=== PATIENT | male | born 2000 ===

== ENCOUNTER 2022-08-31 07:55 | Emergency (ER) | payer BC ==
[2022-08-31] MEDS ORDERED: Acetaminophen/HYDROcodone 325-5 MG Tab PO ONE (08:29)
[2022-08-31] MEDS ORDERED: Ibuprofen 800 MG Tab PO ONE (08:29)
[2022-08-31 08:46] LABS: HEMATOCRIT 44.2 % (38.3-50.1); HEMOGLOBIN 14.7 g/dL (12.9-17.7); MEAN CORPUSCULAR HEMOGLOBIN 30.5 pg (27.0-33.3); MEAN CORPUSCULAR HGB CONC 33.3 g/dL (28.7-35.3); MEAN CORPUSCULAR VOLUME 91.6 fL (80.8-98.7); MEAN PLATELET VOLUME 8.9 fL (6.7-11.0); PLATELET COUNT,PLT 280 x10(3)uL (117-477); RED BLOOD CELL COUNT 4.82 x10(6)uL (3.90-5.90); RED CELL DISTRIBUTION WIDTH 12.9 % (12.4-15.0); WHITE BLOOD CELL COUNT,WBC 17.4 x10-3/uL (3.2-10.1)
[2022-08-31 08:56] LABS: EOSINOPHILS PERCENT MAN 1 % (0-5); LYMPHOCYTES PERCENT MAN 9 % (13-37); MONOCYTES PERCENT MAN 4 % (4-12); SEG NEUTROPHILS PERCENT MAN 86 % (46-82)
[2022-08-31] MEDS ORDERED: Iopamidol 755 Mg/ML 100 ML Bottle IV ONE ×2 (09:14)
[2022-09-02 07:14] LABS: EBV AB VCA, IGM <36.0 U/mL (0.0-35.9)
== END 2022-08-31 10:42 | disposition home or self-care (01) ==
LOC: FB.ED 07:55
DX: K11.20 Sialoadenitis, unspecified (principal)
CPT/HCPCS: 36415; 70491; 85025; 86308; 86644; 86645; 86664; 86665; 86735; 87651; 99284; A9270; Q9967